=== PATIENT | female | born 1970 | race Caucasian/White ===

== ENCOUNTER 2016-10-11 18:05 | Emergency (ER) | payer MEDICARE, OTHER ==
--- NOTE | ~2016-10-11 | CR63 ---
[facility]. [facility] A Service of [facility] & [facility] RADIOLOGY TEXT RESULTS PATIENT: SANTIAGO HOLCOMB LOCATION: SED : 74 UNIT #: [id number] AGE: [address]: Blessing Dave SEX: F ORDER DR: [id number] [address] [address] [id number] E MR#: [id number] Acc #: [id number] NAME: SANTIAGO HOLCOMB. : 1970 SEX: F STUDY DATE/TIME: 10/11/2016 18:23 UNIT: SED ROOM: STUDY DESCRIPTION: CR Chest 2 View Attending Physician: Blessing Dave Pa-C Ordering Physician: Blessing Dave Pa-C Primary Care Physician: No Primary Care Physician MEDICAL IMAGING REPORT This report is preliminary unless electronic signature is present. EXAM 2 view chest. HISTORY States she swallowed a metal fork while eating dinner now feels like something stuck in neck. FINDINGS 2 views of the chest demonstrates no acute cardiopulmonary disease. Heart, mediastinum, great vessels, bony thorax unremarkable. Middle mediastinal density may represent a hiatal hernia. IMPRESSION No acute findings. No radiopaque foreign body identified. Dictated by... Greg Cristina M.D. THIS IS AN ELECTRONICALLY VERIFIED REPORT Greg Cristina M.D. at 10/13/2016 1:08 PM Pricila TD: 10/11/2016 21:24 JOB #: [id number] MEDICAL IMAGING REPORT Page 1 of 1
--- NOTE | ~2016-10-11 | CR4 ---
[facility]. [facility] A Service of [facility] & [facility] RADIOLOGY TEXT RESULTS PATIENT: SANTIAGO HOLCOMB LOCATION: SED : 74 UNIT #: [id number] AGE: [address]: Blessing Dave SEX: F ORDER DR: [id number] [address] [address] [id number] E MR#: [id number] Acc #: [id number] NAME: SANTIAGO HOLCOMB : 1970 SEX: F STUDY DATE/TIME: 10/11/2016 18:23 UNIT: SED ROOM: STUDY DESCRIPTION: CR Abdomen Flat Upright or Dec Attending Physician: Blessing Dave Pa-C Ordering Physician: Blessing Dave Pa-C Primary Care Physician: No Primary Care Physician MEDICAL IMAGING REPORT This report is preliminary unless electronic signature is present. EXAM Supine and upright abdomen. HISTORY Swallowed piece of metal while eating dinner today. FINDINGS Lateral views of the abdomen were also submitted. Supine and upright views of the abdomen demonstrates no radiopaque foreign body. Normal nonobstructive bowel gas pattern. Moderate amount of colonic stool. Lung bases unremarkable. Dictated by... Greg Cristina M.D. THIS IS AN ELECTRONICALLY VERIFIED REPORT Greg Cristina M.D. at 10/12/2016 2:05 PM Pricila TD: 10/11/2016 21:23 JOB #: [id number] MEDICAL IMAGING REPORT Page 1 of 1
[~2016-10-11 18:05] MED LIST: ACULAR LS5 ML OU; ADVAIR 1001 DISK W/D PO; ADVAIR 250-501 EACH IH; ALBUTEROL 0.5ML INH; ALBUTEROL17 GM; ALBUTEROL17 GM INH; ALPRAZOLAM PO; ANXIETY MED; ANXIETY PILL PO; ASPIRIN PO; ATIVAN PO; AUGMENTIN875 MG PO; B/P PILL; BACTRIM DS TABL1 TA1 PO; BACTRIM DS TABL1 TA2 PO; BENADRYL; BENZONATATE PO; BIPOLAR MED; BP MED; BUSPAR15 MG PO; CEFZIL PO; CIPRO PO; DESYREL100 MG PO; DESYREL300 MG PO; DESYREL50 MG; DICLOFENAC PO; FERROUS SULFATE PO; FLEXERIL PO; GEODON20 MG PO; HYDROCHLOROTHIA25 MG PO; HYDROCODON-ACE1 EAC5 PO; HYDROXYZINE HCL10 MG; IBUPROFEN PO; IBUPROFEN800 MG PO; INHALER; KETOPROFEN PO; KLONOPIN; KLONOPIN PO; LAMICTAL PO; LEVAQUIN PO; LISINOPRIL5 MG; LORTAB 10-5001 EACH PO; LORTAB 10/500 T1 TAB; LORTAB 10/500 T1 TAB PO; LORTAB 7.5-5001 TAB; LORTAB 7.5-5001 TAB PO; MACROBID100 MG PO; MEDROL PO; MEDROL4 MG/DOSE- PO; MOBIC7.5 MG/5 M PO; MUCINEX D ER T1 EACH PO; MUCINEX100 MG/5 M; NAPROXEN PO; NEURONTIN PO; NORCO 10/325 TA1 TAB PO; NORVASC; NORVASC PO; NORVASC10 MG PO; OCUFLOX10 ML OU; PARAFON FORTE500 MG PO; PAXIL PO; PERCOCET 7.5-31 EACH PO; PERCOCET 7.5/321 TAB PO; PERCOCET7.5 PO; PHENERGAN DM PO; PHENERGAN DM1 ML PO; PHENERGAN PO; PHENERGAN/CODEIN5 ML PO; PHENERGAN25 M1 PO; PHENERGAN25 MG PO; PREDNISONE PO; PREDNISONE10 MG/DOSE PO; PREDNISONE50 MG PO; PRILOSEC; PRILOSEC PO; PROMETHAZINE-D240 ML PO; PYRIDIUM PO; ROBITUSSIN A-C S5 ML PO; SEROQUEL PO; SEROQUEL50 MG PO; TESSALON200 MG PO; TIZANIDINE HCL4 M1 PO; TRAZODONE; TRAZODONE HCL100 MG PO; TRAZODONE PO; VIBRAMYCIN100 M1 PO; VISTARIL PO; VOLTAREN75 MG PO; WATER PILL; XANAX1 MG PO; ZANAFLEX; ZANAFLEX PO; ZANAFLEX4 M1 PO; ZITHROMAX PO; ZITHROMAX1 G/PKT PO; ZOFRAN ODT4 MG PO; ZOLOFT; ZYPREXA PO; [UNRECOGNIZED DRUG - OTHER]
== END 2016-10-11 19:27 | disposition home or self-care (01) ==
LOC: SED 18:05
DX: T18.198A Other foreign object in esophagus causing other injury, initial encounter (principal); I10 Essential (primary) hypertension; F31.9 Bipolar disorder, unspecified; Z79.899 Other long term (current) drug therapy
CPT/HCPCS: 71020; 74020; 84703; 99284